=== PATIENT | female | born 1970 | race African-American/Black ===

== ENCOUNTER 2018-01-29 11:57 | Day surgery (SDC) | payer MEDICARE, MEDICAID ==
[~2018-01-29] VITALS: Ht 149.9 cm; Wt 78.5 kg
[~2018-01-29 11:57] MED LIST: AMOXICILLIN 50500 MG PO; AUGMENTIN 875 M1 TAB PO; CLARITIN 1010 MG/TAB PO; FLAGYL 250250 MG/TAB PO; LAMICTAL200 MG PO; LORTAB 5/500 501 TAB PO; LORTAB 7.5/5001 TAB PO; NAPROSYN500 MG PO; NO HOME MEDICATIONS; PENICILLIN250 MG PO; PHENERGAN 25 TA25 MG PO; PHENERGAN50 M1 PO; VITAMIND3 5000 PO
[2018-01-29] MEDS ORDERED: CEPHALEXIN500 M1 PO (13:21)
[2018-01-29 13:43] VITALS: BP 120/85; PULSE 62
[2018-01-29] MEDS ORDERED: NAPROSYN500 MG PO (13:44)
[2018-01-29] MEDS ORDERED: FLONASEALLERGY NS (13:48)
[2018-01-29] MEDS ORDERED: ASPIRIN 81M81 MG/TA2 PO (13:48)
[2018-01-29] MEDS ORDERED: PRILOSEC 20MG20 MG PO (13:49)
[2018-01-29 14:53] VITALS: BP 127/86; PULSE 96
== END 2018-01-29 15:09 | disposition home or self-care (01) ==
LOC: COL.CAR 11:57
DX: R00.2 Palpitations (principal); R03.0 Elevated blood-pressure reading, without diagnosis of hypertension; Z86.73 Personal history of transient ischemic attack (TIA), and cerebral infarction without residual deficits; K21.9 Gastro-esophageal reflux disease without esophagitis; G47.33 Obstructive sleep apnea (adult) (pediatric); E55.9 Vitamin D deficiency, unspecified; G40.909 Epilepsy, unspecified, not intractable, without status epilepticus; Z79.82 Long term (current) use of aspirin; Z79.899 Other long term (current) drug therapy

== ENCOUNTER 2020-11-06 11:46 | Emergency (ER) | payer MEDICARE, MEDICAID ==
[~2020-11-06] VITALS: Ht 149.9 cm; Wt 72.7 kg
[~2020-11-06 11:46] MED LIST changes: +ASPIRIN 81M81 MG/TA2 PO; +CEPHALEXIN500 M1 PO; +FLONASEALLERGY NS; +PRILOSEC 20MG20 MG PO
[2020-11-06 11:56] VITALS: BP 136/72; TEMP 97.7
[2020-11-06 12:54] LABS: ALBUMIN 4.6 gm/dL (3.5-5.0); BILIRUBIN,TOTAL 0.9 mg/dL (0.0-1.0); CALCIUM 9.3 mg/dL (8.4-10.2); CREATININE, serum 1.01 (0.52-1.25); POTASSIUM 4.6 mmol/L (3.4-5.0); TOTAL PROTEIN 9.2 gm/dL (6.4-8.2)
[2020-11-06 13:07] LABS: BASO % 0.2 % (0.0-2.0); EOS % 0.1 % (0-4.0); GRAN # 10.2 (1.4-6.5); GRAN % 87.2 % (42.2-75.2); HEMATOCRIT 44.8 % (37.0-47.0); HEMOGLOBIN 14.4 g/dl (12.5-16.0); LYMPH # 0.5 (1.2-3.4); LYMPH % 4.4 % (20.0-51.0); MEAN CELL VOLUME 90 fl (80.0-100.0); MEAN CORPUSCULAR HEMOGLOBIN 29 pg (27.0-31.0); MEAN CORPUSCULAR HGB CONC 32 g/dl (33.0-37.0); MEAN PLATELET VOLUME 11.8 fl (7.4-10.4); MONO # 0.9 (0.1-0.6); MONO % 7.7 % (1.7-9.3); PLATELET COUNT 252 K/mm3 (130-400)
[2020-11-06] MEDS ORDERED: ZOFRAN ODT4 MG PO (13:26)
[2020-11-06 13:29] VITALS: PULSE 56
== END 2020-11-06 13:35 | disposition home or self-care (01) ==
LOC: COL.ER 11:46
PROVIDERS: Emergency Medicine
DX: R11.2 Nausea with vomiting, unspecified (principal); R19.7 Diarrhea, unspecified; Z79.82 Long term (current) use of aspirin; Z79.51 Long term (current) use of inhaled steroids
CPT/HCPCS: J1200; J2765; J7030

== ENCOUNTER 2020-11-16 11:38 | Emergency (ER) | payer MEDICARE, MEDICAID ==
[~2020-11-16] VITALS: Ht 149.9 cm; Wt 72.7 kg
[~2020-11-16 11:38] MED LIST changes: +ZOFRAN ODT4 MG PO
[2020-11-16 11:49] VITALS: TEMP 98
[2020-11-16] MEDS ORDERED: ZOFRAN ODT4 MG PO (13:07)
[2020-11-16] MEDS ORDERED: ANTIVERT 25MG25 MG PO (13:07)
[2020-11-16 13:27] VITALS: BP 141/91; PULSE 90
== END 2020-11-16 13:27 | disposition home or self-care (01) ==
LOC: COL.ER 11:38
DX: H81.10 Benign paroxysmal vertigo, unspecified ear (principal); Z86.73 Personal history of transient ischemic attack (TIA), and cerebral infarction without residual deficits; Z79.82 Long term (current) use of aspirin; Z79.51 Long term (current) use of inhaled steroids

== ENCOUNTER 2021-06-03 06:15 | Emergency (ER) | payer MEDICARE, MEDICAID ==
[~2021-06-03] VITALS: Ht 149.9 cm; Wt 81.8 kg
[~2021-06-03 06:15] MED LIST changes: +ANTIVERT 25MG25 MG PO
[2021-06-03 06:23] VITALS: TEMP 97.8
[2021-06-03 06:54] LABS: BASO % 0.4 % (0.0-2.0); EOS # 0.1 K/mm3 (0.0-0.7); GRAN # 4.6 K/mm3 (1.4-6.5); GRAN % 66.1 % (42.2-75.2); HEMATOCRIT 40.9 % (37.0-47.0); HEMOGLOBIN 13.4 g/dl (12.5-16.0); LYMPH # 1.8 K/mm3 (1.2-3.4); LYMPH % 25.1 % (20.0-51.0); MEAN CELL VOLUME 85 fl (80.0-100.0); MEAN CORPUSCULAR HEMOGLOBIN 28 pg (27.0-31.0); MEAN CORPUSCULAR HGB CONC 33 g/dl (33.0-37.0); MEAN PLATELET VOLUME 10.7 fl (7.4-10.4); MONO # 0.4 K/mm3 (0.1-0.6); MONO % 6.3 % (1.7-9.3); PLATELET COUNT 255 K/mm3 (130-400); RED BLOOD COUNT 4.79 M/mm3 (4.10-5.30); REDCELL DISTRIBUTION WIDTH-CV 12.9 % (11.5-14.5)
[2021-06-03 07:11] LABS: ALANINE AMINOTRANSFERASE 33 U/L (0-55); ALKALINE PHOSPHATASE 67 U/L (40-150); ANION GAP 11 mmol/L (7-16); AST,SGOT 40 U/L (5-34); BILIRUBIN,TOTAL 0.5 mg/dL (0.2-1.2); BLOOD UREA NITROGEN 14 mg/dL (10-20); CALCIUM 9.5 mg/dL (8.4-10.2); CARBON DIOXIDE 23 mmol/L (22-29); CHLORIDE 108 mmol/L (98-107); CREATININE, serum 1.39 mg/dL (0.57-1.11); GLUCOSE 165 mg/dL (70-99); MAGNESIUM 1.9 mg/dL (1.6-2.6); POTASSIUM 3.4 mmol/L (3.5-4.5); SODIUM 142 mmol/L (136-145); TOTAL PROTEIN 7.9 gm/dL (6.2-8.1)
[2021-06-03 07:18] LABS: TROPONIN-I < 0.010 ng/mL (0.00-0.033)
[2021-06-03 07:45] VITALS: BP 125/78; PULSE 96
== END 2021-06-03 07:45 | disposition home or self-care (01) ==
LOC: COL.ER 06:15
PROVIDERS: Emergency Medicine
DX: R42 Dizziness and giddiness (principal); R11.2 Nausea with vomiting, unspecified; Z86.73 Personal history of transient ischemic attack (TIA), and cerebral infarction without residual deficits; Z86.69 Personal history of other diseases of the nervous system and sense organs
CPT/HCPCS: J2405; J7120

== ENCOUNTER 2023-11-06 14:00 | Outpatient (RCR) | payer MEDICARE, OTHER | END 2023-11-19 | disposition home or self-care (01) | LOC: WSST | DX: I69.319 Unspecified symptoms and signs involving cognitive functions following cerebral infarction (principal); I69.398 Other sequelae of cerebral infarction; R48.9 Unspecified symbolic dysfunctions; R41.3 Other amnesia ==

== ENCOUNTER 2023-12-18 14:00 | Outpatient (RCR) | payer MEDICARE, OTHER | END 2023-12-20 | disposition home or self-care (01) | LOC: WSST | DX: I69.328 Other speech and language deficits following cerebral infarction (principal); R48.9 Unspecified symbolic dysfunctions; R41.3 Other amnesia ==